=== PATIENT | male | born 1955 | race Caucasian/White ===

== ENCOUNTER 2017-07-01 12:40 | Emergency (ER) | payer OTHER ==
[2017-07-01 13:06] VITALS: RESP 16; TEMP 98.2
--- NOTE | 2017-07-01 13:10 | EDPHY ---
H & P Stated Complaint: R SIDED NUMBNESS, DIZZY HPI/ROS: CHIEF COMPLAINT: Right sided numbness and tingling HISTORY OF PRESENT ILLNESS: The patient is a 62 y/o male complaining of episodes of right-sided numbness and tingling, onset , 5 days ago. Around 10:30 AM morning, he was walking upstairs when he began experiencing lightheadedness and an "out of body" feeling. He soon developed decreased sensation and tingling in the right side of his face. He had another episode around 3:30 PM afternoon with decreased sensation and tingling extending into the right side of his neck and his right shoulder. Around 5:30 PM , he had another episode with decreased sensation and tingling extending into his right arm. All three episodes lasted about 30 minutes before slowly dissipating. He had a fourth episode on Thursday. He was asymptomatic on Thursday and Thursday. Thursday he had mildly decreased sensation in his face throughout the day. Thursday night he had an episode with complete numbness spanning the entire right side of his body lasting 15 minutes. Today he has mildly decreased sensation in the right side of his face. He describes the decreased sensation as a "post novocaine" feeling. He has an associated slight pressure behind his right eye. He denies headache, vision changes, difficulty with speech, weakness, chest pain, difficulty breathing, urinary complaints, or any other associated symptoms. He denies history of hypertension, cardiac issues , neurologic issues, or any chronic conditions. He was a 2 pack a day smoker until 1987 and a sporadically smoked cigarettes and cigars since until totally quitting 6 months ago. He has 2 drinks a day and occasionally uses marijuana. He denies illicit drug use. REVIEW OF SYSTEMS: A ten point review of systems was performed and is negative with the exception of the items mentioned in the HPI. Past medical history: Denies Past surgical history: 1. Vasectomy 2. Surgical repair for a broken arm Family history: 1. Heart attacks in 70s 2. Colon cancer Social history: at bedside, runs a [employer], lives in [place] General Appearance: Alert. Vital signs reviewed. Blood pressure 130/100. Eyes: Pupils equal and round, no conjunctival injection, no discharge. Anicteric. ENT, Mouth: Mucous membranes are moist, no oropharyngeal erythema or edema. Neck: No carotid bruit bilaterally. No lymphadenopathy, supple. Respiratory: Lungs are clear to auscultation; no wheezes, rales, or rhonchi. Cardiovascular: Regular rate and rhythm; no murmur, rub, or gallop. Gastrointestinal: Abdomen is soft and nontender, no masses or organomegaly, bowel sounds normal. Skin: Warm and dry, no rashes on exposed skin, normal color. Back: Nontender to palpation over the thoracolumbar spine. No CVAT. Extremities: No lower extremity edema, no calf tenderness or swelling. Neurological: Alert and oriented. Moving all four extremities easily and equally. Cranial nerves II through XII are examined and are intact (visual acuity not tested). Decreased sensation to light touch in right V1, V2, and V3, on the right, more pronounced in V2 and V3. Strength is 5 over 5 bilaterally with testing of all major motor groups. Sensation is intact to light touch over all 4 extremities. Deep tendon reflexes are 2+ in the biceps and knees bilaterally. Gait is normal. [id number] is performed accurately. Psychiatric: Normal affect. - Personal History Current Tetanus/Diphtheria Vaccine: Unsure - Medical/Surgical History Hx Asthma: No Hx Chronic Respiratory Disease: No Hx Diabetes: No Hx Cardiac Disease: No Hx Renal Disease: No Hx Cirrhosis: No Hx Alcoholism: No Hx HIV/AIDS: No Hx Splenectomy or Spleen Trauma: No - Social History Smoking Status: Former smoker Constitutional: Initial Vital Signs Temperature (C) 36.8 C 07/01/17 13:05 Heart Rate 74 07/01/17 13:05 Respiratory Rate 16 07/01/17 13:05 Blood Pressure 130/100 H 07/01/17 13:05 O2 Sat (%) 96 07/01/17 13:05 O2 Delivery Mode Room Air Allergies/Adverse Reactions: No Known Allergies Allergy (Unverified 07/01/17 13:04) Home Medications: Medication Instructions Recorded NK [No Known Home Meds] 07/01/17 Medical Decision Making - Diagnostics EKG Interpretation: 12 lead EKG is interpreted in Trace master View by emergency department physician. ED Course/Re-evaluation: The patient presents with multiple episodes of right sided numbness without muscle impairment. His EKG was normal. His CT was also normal. MRI has been ordered to further evaluate the etiology for his symptoms. MRI was unremarkable. I consulted with Dr. Burton Queen, neurologist. He advises me to perform a carotid ultrasound. If his ultrasound is normal he can be released and follow up later this week with neurology. I informed the patient of the results of his work up. Ultrasound was unremarkable. I feel the patient is safe to be released with instructions to follow up with Dr. Queen. I informed the patient. He agrees to this course of action. Follow-up instructions and return precautions given. In etiology of his numbness has not been discovered and he understands this. No evidence of CVA or TIA. No intracranial mass. No intracranial hemorrhage. Nothing to suggest multiple sclerosis. There are no signs/symptoms of infection in his history of physical exam. - Data Points Laboratory Results: Laboratory Results 07/01/17 13:18 07/01/17 13:18 Departure - Departure Disposition: Home, Routine, Self-Care Clinical Impression: Numbness on right side Condition: Good Instructions: Paresthesia (ED) Additional Instructions: 1. Follow-up with Dr. Burton Queen, neurologist, later this week regarding your symptoms. When you call please inform them you were seen in the ER and Dr. Queen would like to see you within the week. 2. Return to the ED for any worsening of condition. Referrals: Burton Queen MD [Medical Doctor] - As per Instructions Report Scribed for: Lesly Alegria Report Scribed by: Sigrid Sahu Date of Report: 07/01/17 Time of Report: 14:30 Physician Review and Approval Statement: 07/01/17 13:10 Portions of this note were transcribed by the medical assistant prn. I, Dr. Lesly Alegria, personally performed the history, physical exam, and medical decision- making; and confirmed the accuracy of the information in the transcribed note.
--- NOTE | 2017-07-01 13:10 | CPEKG ---
Heart Rate: 74 RR Interval: 811 P-R Interval: 176 QRSD Interval: 94 QT Interval: 380 QTC Interval: 422 P [place]: 18 QRS [place]: 17 T Wave [place]: 38 EKG Severity - NORMAL ECG - EKG Impression: SINUS RHYTHM Electronically Signed By: Diego Rivers 01-Jul-2017 21:51:33
[2017-07-01 13:40] LABS: PLATELET COUNT 293 10^3/uL (150-400)
[2017-07-01] MEDS ORDERED: GADOBUTROL 10 ML VIAL IVP ONE (15:51)
[2017-07-01 18:07] VITALS: BP 159/106; PULSE 68; O2SAT 98
== END 2017-07-01 18:07 | disposition home or self-care (01) ==
DX: R20.0 Anesthesia of skin (principal); Z87.891 Personal history of nicotine dependence
CPT/HCPCS: A9585

== ENCOUNTER → 2017-08-03 | Outpatient (CLI) | payer OTHER ==
[~2017-08-03] MED LIST: IOPAMIDOL (ISOVUE 370) 100 ML BTL IV ONE
== END ==
LOC: FIMAGING 08:53
PROVIDERS: ATTEND Psychiatry & Neurology Neurology
DX: R20.0 Anesthesia of skin (principal); R20.2 Paresthesia of skin; I77.9 Disorder of arteries and arterioles, unspecified
CPT/HCPCS: Q9967